=== PATIENT | female | born 1960 | race Caucasian/White ===

== ENCOUNTER 2019-09-10 16:10 | Emergency (ER) | payer BC ==
[~2019-09-10] VITALS: Ht 172.7 cm; Wt 68.2 kg
[2019-09-10 16:57] LABS: COLOR,URINE YELLOW (Yellow); GLUCOSE, URINE NEGATIVE (Neg); KETONES,URINE TRACE mg/dl (Neg); LEUKOCYTE ESTERASE ,URINE SMALL (Neg); NITRITES, URINE NEGATIVE (Neg); OCCULT BLOOD,URINE NEGATIVE (Neg); PROTEIN,URINE NEGATIVE (Neg)
[2019-09-10 16:58] LABS: URINE HCG NEGATIVE (NEG)
[2019-09-10 16:59] LABS: CLARITY,URINE SLIGHTLY CLOUDY (Clear); UA COLLECTION TYPE CLN CATCH MIDSTREAM
[2019-09-10 17:03] LABS: BASOPHILS % (AUTO) 0.9 % (0-1); EOSINOPHILS # (AUTO) 0.1 X10'3 (0-0.9); EOSINOPHILS % (AUTO) 3.4 % (0-6); HEMATOCRIT 44.6 % (35.0-45.0); HEMOGLOBIN 14.7 g/dl (12.0-16.0); LYMPHOCYTES # (AUTO) 0.9 X10'3 (1.1-4.8); LYMPHOCYTES % (AUTO) 27.5 % (21-51); MEAN CORPUSCULAR HEMOGLOBIN 28.8 PG (27.0-31.0); MEAN CORPUSCULAR VOLUME 87.4 FL (78-98); MEAN PLATELET VOLUME 9.2 FL (7.4-10.4); MONOCYTES # (AUTO) 0.3 X10'3 (0-0.9); MONOCYTES % (AUTO) 7.7 % (2-12); NEUTROPHILS # (AUTO) 2.1 X10'3 (1.8-7.7); NEUTROPHILS % (AUTO) 60.5 % (42-75); PLATELET COUNT 130 X10'3 (140-440); RED CELL DISTRIBUTION WIDTH 14.2 % (11.5-14.5); WHITE BLOOD COUNT 3.4 X10'3 (4.5-11.0)
[2019-09-10 17:05] LABS: MUCUS STRANDS MANY /LPF (Neg); SQUAMOUS EPITHELIAL CELL,UR MANY /LPF (FEW)
[2019-09-10 17:07] LABS: RBC,URINE 0-2 /HPF (0-2)
[2019-09-10 17:08] LABS: BACTERIA,URINE 1+ /HPF (Neg)
[2019-09-10 17:13] LABS: ALANINE AMINOTRANSFERASE 83 U/L (12-78); ALBUMIN 3.8 G/DL (3.4-5.0); ALBUMIN/GLOBULIN RATIO 1.3 (1.1-1.5); ALKALINE PHOSPHATASE 86 IU/L (46-116); ANION GAP 7 (8-16); ASPARTATE AMINO TRANSFERASE 138 U/L (10-37); BILIRUBIN,TOTAL 0.6 MG/DL (0.1-1.0); BLOOD UREA NITROGEN 18 MG/DL (7-18); BUN/CREATININE RATIO 18.8 (6.6-38.0); CALCIUM 8.9 MG/DL (8.5-10.1); CHLORIDE 110 MMOL/L (99-107); CREATININE 0.96 MG/DL (0.40-0.90); GLUCOSE 101 MG/DL (70-104); LIPASE 111 U/L (73-393); SODIUM 145 MMOL/L (135-145); TOTAL CARBON DIOXIDE 27.9 MMOL/L (24-32); TOTAL PROTEIN 6.7 G/DL (6.4-8.2); eGFR 59 ML/MIN
--- NOTE | 2019-09-10 17:22 | NUR ---
Natalia ANDERSON at bedside.
[2019-09-10] MEDS ORDERED: ondansetron 4mg rapidly disintigrating tab PO ONE ×2 (17:55→19:25)
[2019-09-10] MEDS ORDERED: morphine 4 MG/ML inj SYRINge IM ONE ×2 (17:55→19:25)
--- NOTE | 2019-09-10 18:35 | NUR ---
ULTRASOUND IN ROOM
[2019-09-10] MEDS ORDERED: ONDA4TAB6 PO (19:24)
[2019-09-10] MEDS ORDERED: HYDR-4383 PO (19:24)
[2019-09-10 20:01] VITALS: BP 153/78
== END 2019-09-10 20:03 | disposition home or self-care (01) ==
LOC: ER 16:10
DX: K80.20 Calculus of gallbladder without cholecystitis without obstruction (principal); Z88.0 Allergy status to penicillin; Z88.8 Allergy status to other drugs, medicaments and biological substances
CPT/HCPCS: 36415; 76700; 80053; 81001; 81025; 83690; 85025; 96372; 99285; J2270

== ENCOUNTER 2019-10-25 07:17 | Outpatient (CLI) | payer BC ==
[2019-10-25] VITALS (21 sets, daily range): BP systolic 88–122; BP diastolic 52–80
[~2019-10-25 07:17] MED LIST: HYDR-4383 PO; ONDA4TAB6 PO
== END 2019-10-25 23:59 | disposition home or self-care (01) ==
LOC: CARD DIAG 07:17
PROVIDERS: ATTEND Internal Medicine Cardiovascular Disease
DX: R55 Syncope and collapse (principal)
CPT/HCPCS: 93660